=== PATIENT | female | born 1945 | race Caucasian/White ===

== ENCOUNTER → 2020-08-03 00:33 | Outpatient (CLI) | payer MEDICARE, SELFPAY ==
[2020-08-03 19:08] LABS: SARS-CoV-2 RNA PCR Negative
== END ==
PROVIDERS: PCP Pediatrics; Visit Provider Internal Medicine Gastroenterology
DX: Z01.812 Encounter for preprocedural laboratory examination (principal); Z20.822 Contact with and (suspected) exposure to COVID-19
CPT/HCPCS: C9803; U0003; U0005

== ENCOUNTER 2020-08-06 01:03 | Day surgery (SDC) | payer MEDICARE, SELFPAY ==
[2020-07-28 13:54] VITALS: BMI 33.7
--- NOTE | 2020-08-06 10:03 | WPDANESEPPF ---
Anes - Initial Pre Proc Eval Procedure: Operation Date: 08/06/20 11:45 Proposed Procedures p Esophagogastroduodenoscopy & Colonoscopy - Anthony Drummond MD Date/Time: 08/06/20 10:03 Surgeon: Anthony Drummond MD Pre Op Diagnosis: Positive Cologuard,GERD Patient Data Age: 74 Gender: F Height: 1.68 m Weight: 95 kg Allergies Allergy/AdvReac Type Severity Reaction Status Date / Time morphine Allergy Severe Anaphylactic Verified 08/06/20 10:35 Shock codeine Allergy Unknown Nausea and Verified 08/06/20 10:35 Vomiting sulfamethoxazole Allergy Rash Verified 08/06/20 10:35 [From Bactrim] trimethoprim [From Bactrim] Allergy Rash Verified 08/06/20 10:35 Home Medications Medication Instructions Recorded Confirmed Type acetaminophen [Tylenol Arthritis] 650 mg PO Q8H 07/28/20 08/06/20 History allopurinol 100 mg PO DAILY 07/28/20 08/06/20 History apixaban [Eliquis] 5 mg PO BID 07/28/20 08/06/20 History atorvastatin 10 mg PO DAILY 07/28/20 08/06/20 History duloxetine 30 mg PO DAILY 07/28/20 08/06/20 History furosemide 20 mg PO DAILY 07/28/20 08/06/20 History levocetirizine 5 mg PO DAILY 07/28/20 08/06/20 History levothyroxine 50 mcg PO DAILY 07/28/20 08/06/20 History metoprolol tartrate 25 mg PO BID 07/28/20 08/06/20 History mometasone-formoterol [Dulera] 1 inh INHALATION DAILY 07/28/20 08/06/20 History montelukast 10 mg PO DAILY 07/28/20 08/06/20 History omeprazole 40 mg PO DAILY 07/28/20 08/06/20 History pregabalin 150 mg PO TID 07/28/20 08/06/20 History tiotropium bromide [Spiriva with 1 cap INHALATION DAILY 07/28/20 08/06/20 History HandiHaler] tramadol 50 mg PO DAILY PRN 07/28/20 08/06/20 History trazodone 50 mg PO DAILY 07/28/20 08/06/20 History Patient hx anesthesia problems: none Family hx anesthesia problems: none [facility] Past Medical History Medical History (Updated 08/06/20 @ 10:05 by Dipesh Reed MD) Asthma CHF (congestive heart failure) Chronic GERD CKD (chronic kidney disease) COPD (chronic obstructive pulmonary disease) DVT (deep venous thrombosis) Emphysema of lung HTN (hypertension) Hypercholesterolemia Obesity Pulmonary embolism october 2019 Pulmonary HTN Social History Social History Smoking status: Never smoker Alcohol intake: never Substance use: never Substance use type: does not use Living arrangements: with family Spiritual care concerns: No Anes - Eval Final PreProcedure Day of Procedure 08/06/20 10:03 Patient weight: obese Heart: regular rate and rhythm Lungs: clear to auscultation and normal air movement Airway: Mallampati scale class II Neurological: alert and oriented Last oral intake: >/= 8 hours ASA classification: IV Emergent: no Anesthetic plan: proceed Anesthesia type and monitoring: general GIVS Informed Consent: The patient's anesthetic plan and its attendant risks and benefits were discussed with the patient/family/POA. Questions were solicited and answers provided to the satisfaction of the patient/family/POA.
[2020-08-06 10:30] VITALS: BP 132/92; PULSE 120; RESP 20; TEMP 36.2; O2SAT 97
[2020-08-06] MEDS: LACTATED RINGERS 1,000 ML 150 ML IV CONT (10:54)
--- NOTE | 2020-08-06 11:46 | PM.HPGS ---
History of Present Illness History of Present Illness Consent: Risks, benefits, and alternatives have been discussed and questions answered. Patient agrees to proceed with procedure. Chief complaint: Positive Cologuard,GERD Narrative: Tasha Serrato is a 74 year old female with gerd but sometimes hoarseness, on omeprazole. Also positive cologuard, last colonoscopy 10 years ago Review of Systems Constitutional: Constitutional: Denies headache(s) and Denies weakness Eyes: Eyes: Denies blurry vision ENT: Reports Normal hearing present, Denies headache(s) and Denies neck pain Cardiovascular: Cardiovascular: Denies chest pain and Denies dyspnea Respiratory: Respiratory: Denies dyspnea Gastrointestinal: Gastrointestinal: Reports no additional gastrointestinal complaints Genitourinary: Genitourinary: Denies dysuria Musculoskeletal: Musculoskeletal: Denies neck pain Integumentary/Breasts: Skin/Breast: Denies dry skin Neurologic: Reports Normal hearing present, Denies headache(s) and Denies weakness Psychiatric: Psychiatric: Denies anxiety Endocrine: Endocrine: Denies change in body appearance Hematologic/Lymphatic: Hematologic/Lymphatic: Denies easy bleeding Allergic/Immunologic: Allergic/Immunologic: Denies urticaria PMFSH Past Medical History Medical History (Updated 08/06/20 @ 11:47 by Anthony Drummond MD) Asthma CHF (congestive heart failure) Chronic GERD CKD (chronic kidney disease) COPD (chronic obstructive pulmonary disease) DVT (deep venous thrombosis) Emphysema of lung HTN (hypertension) Hypercholesterolemia Obesity Positive colorectal cancer screening using Cologuard test Pulmonary embolism october 2019 Pulmonary HTN Social History Social History Smoking status: Never smoker Alcohol intake: never Substance use: never Substance use type: does not use Living arrangements: with family Spiritual care concerns: No Meds Home Medications and Allergies Home Medications Medication Instructions Recorded Confirmed Type acetaminophen [Tylenol Arthritis] 650 mg PO Q8H 07/28/20 08/06/20 History allopurinol 100 mg PO DAILY 07/28/20 08/06/20 History apixaban [Eliquis] 5 mg PO BID 07/28/20 08/06/20 History atorvastatin 10 mg PO DAILY 07/28/20 08/06/20 History duloxetine 30 mg PO DAILY 07/28/20 08/06/20 History furosemide 20 mg PO DAILY 07/28/20 08/06/20 History levocetirizine 5 mg PO DAILY 07/28/20 08/06/20 History levothyroxine 50 mcg PO DAILY 07/28/20 08/06/20 History metoprolol tartrate 25 mg PO BID 07/28/20 08/06/20 History mometasone-formoterol [Dulera] 1 inh INHALATION DAILY 07/28/20 08/06/20 History montelukast 10 mg PO DAILY 07/28/20 08/06/20 History omeprazole 40 mg PO DAILY 07/28/20 08/06/20 History pregabalin 150 mg PO TID 07/28/20 08/06/20 History tiotropium bromide [Spiriva with 1 cap INHALATION DAILY 07/28/20 08/06/20 History HandiHaler] tramadol 50 mg PO DAILY PRN 07/28/20 08/06/20 History trazodone 50 mg PO DAILY 07/28/20 08/06/20 History Allergies Allergy/AdvReac Type Severity Reaction Status Date / Time morphine Allergy Severe Anaphylactic Verified 08/06/20 10:35 Shock codeine Allergy Unknown Nausea and Verified 08/06/20 10:35 Vomiting sulfamethoxazole Allergy Rash Verified 08/06/20 10:35 [From Bactrim] trimethoprim [From Bactrim] Allergy Rash Verified 08/06/20 10:35 Vital Signs Vital Signs - 24 hr 08/06/20 10:30 Temperature 97.1 F L Pulse Rate 120 H Respiratory Rate 20 Blood Pressure 132/92 H Pulse Oximetry 97 Exam Const: General: comfortable and no acute distress HENMT: General nose exam: Normal nares present Eyes: General: appearance normal, both eyes and all related structures Neck: Neck: no JVD Resp: Auscultation: clear to auscultation bilaterally Cardio: Rate: regular rate Rhythm: regular rhythm GI: Inspection: non-distended GI Palp: Yes Soft to palpation Skin: General skin exam: normal color
[2020-08-06 12:33] VITALS: BP 127/59; PULSE 86; RESP 20; O2SAT 95
[2020-08-06 12:43] VITALS: BP 129/64; PULSE 81; RESP 22; O2SAT 98
[2020-08-06 12:53] VITALS: BP 133/62; PULSE 80; RESP 18; O2SAT 99
== END 2020-08-06 13:20 | disposition home or self-care (01) ==
PROVIDERS: PCP Family Medicine; Visit Provider Internal Medicine Gastroenterology
PROC: 0DJ08ZZ Inspection of Upper Intestinal Tract, Via Natural or Artificial Opening Endoscopic (ICD-10-PCS; CPT 43235; principal; 2020-08-06 11:45)
DX: D12.2 Benign neoplasm of ascending colon (principal); D12.0 Benign neoplasm of cecum; D12.4 Benign neoplasm of descending colon; D12.5 Benign neoplasm of sigmoid colon; D12.3 Benign neoplasm of transverse colon; K21.00 Gastro-esophageal reflux disease with esophagitis, without bleeding; I13.0 Hypertensive heart and chronic kidney disease with heart failure and stage 1 through stage 4 chronic kidney disease, or unspecified chronic kidney disease; R19.5 Other fecal abnormalities; K57.30 Diverticulosis of large intestine without perforation or abscess without bleeding; K64.8 Other hemorrhoids; R49.0 Dysphonia; K20.90 Esophagitis, unspecified without bleeding; K44.9 Diaphragmatic hernia without obstruction or gangrene; K29.70 Gastritis, unspecified, without bleeding; E66.9 Obesity, unspecified; Z68.34 Body mass index [BMI] 34.0-34.9, adult; J45.909 Unspecified asthma, uncomplicated; I50.9 Heart failure, unspecified; J44.9 Chronic obstructive pulmonary disease, unspecified; Z86.718 Personal history of other venous thrombosis and embolism; J43.9 Emphysema, unspecified; E78.00 Pure hypercholesterolemia, unspecified; I27.20 Pulmonary hypertension, unspecified; Z86.711 Personal history of pulmonary embolism; Z79.01 Long term (current) use of anticoagulants; E03.9 Hypothyroidism, unspecified; N18.9 Chronic kidney disease, unspecified
CPT/HCPCS: 45385; 45381; 43239; 88305; J2704; J7120